=== PATIENT | female | born 1975 | race Caucasian/White ===

== ENCOUNTER → 2016-11-22 | Outpatient (CLI) | payer SELFPAY ==
[~2016-11-22] MED LIST: ALLERGY10 M1 PO; BELVIQ10 MG PO; CLINDAMYCIN HC300 MG PO; MUSSINEX; PERCOCET 10/3251 TAB PO; PHENERGAN25 M1 DOB; VITAMIN D PO
== END | disposition home or self-care (01) ==
LOC: CBAR 08:52
DX: E66.01 Morbid (severe) obesity due to excess calories (principal)
CPT/HCPCS: 76000